=== PATIENT | male | born 1955 | race Caucasian/White ===

== ENCOUNTER 2021-02-08 15:00 | Emergency (ER) | payer MEDICARE, OTHER ==
[2021-02-08 15:52] LABS: HEMOGLOBIN 17.3 gm/dl (14.0-17.5); RED BLOOD COUNT 5.59 M/UL (4.20-5.50); WHITE BLOOD COUNT 18.4 K/UL (4.5-11.0)
[2021-02-08 16:23] LABS: BUN/CREATININE RATIO 18 (0-10)
[2021-02-08] MEDS ORDERED: HYDROCODON-ACE1 EAC4 PO (18:16)
[2021-02-08] MEDS ORDERED: LEVOFLOXACIN750 MG PO (18:16)
[2021-02-08] MEDS ORDERED: METRONIDAZOLE500 MG PO (18:16)
== END 2021-02-08 18:38 | disposition home or self-care (01) ==
LOC: ER1 15:00
PROVIDERS: Family Medicine
DX: K57.32 Diverticulitis of large intestine without perforation or abscess without bleeding (principal); E78.5 Hyperlipidemia, unspecified; Z90.49 Acquired absence of other specified parts of digestive tract; Z87.440 Personal history of urinary (tract) infections; F17.210 Nicotine dependence, cigarettes, uncomplicated
CPT/HCPCS: 80053; 83605; 83690; 85025; 96374; 99284; J1885; Q9967